=== PATIENT | male | born 2000 | race Caucasian/White ===

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

== ENCOUNTER 2022-02-24 12:01 | Inpatient (IN) | payer MEDICAID, SELFPAY ==
[2022-02-24 12:05] VITALS: BP 150/80; PULSE 97; RESP 18; O2SAT 99; BMI 24.4
--- NOTE | 2022-02-24 12:05 | W.ED.PSYCHS ---
HPI - Psych General: Chief Complaint: Psychiatric Symptoms Stated Complaint: PSYCH EVAL Time Seen by Provider: 02/24/22 12:05 History of Present Illness: Mr. Montana is a 21-year-old male with significant past medical history of autism spectrum disorder, major depression, PTSD presenting to the emergency department due to suicidal ideation. Symptoms worsen started yesterday. Attempted to wrap a string of Dex lights around his neck and also harm himself with a plastic knife. Unsure of why symptoms are worse. Reports compliance with medication regimen and no recent changes. Does report previous benefit from hospitalization. Onset (ago): day(s) Duration: getting worse History of same: Yes Relieving factors: none Exacerbating factors: none Associated psychiatric symptoms: depression and suicidal ideation Treatments prior to arrival: none If self harm: admits thoughts of self harm, has plan and has acted on plan Review of Systems General: Reports: 10 or more systems reviewed and unremarkable except in HPI and below PFSH ED PFSH: Medical History Autism spectrum disorder Physical Exam Const: COMMON NORMALS: alert GENERAL APPEARANCE: cooperative and well developed HENMT: COMMON NORMALS: normocephalic and atraumatic HEAD & SCALP: normocephalic and atraumatic Eye: COMMON NORMALS: conjunctivae normal CONJUNCTIVA: Yes conjunctivae normal SCLERA: sclerae normal Neck/C-Spine: COMMON NORMALS: supple GENERAL: Yes trachea midline Resp: COMMON NORMALS: clear to auscultation bilaterally EFFORT & INSPECTION: Yes able to speak in complete sentences AUSCULTATION: clear to auscultation bilaterally Cardio: COMMON NORMALS: regular rate and regular rhythm RATE: regular rate RHYTHM: regular rhythm GI: COMMON NORMALS: Soft to palpation PALPATION: Yes Soft to palpation and No Tenderness to palpation present (GI) Extremity: GENERAL: Yes normal exam except as noted and No edema Neuro: COMMON NORMALS: moves all extremities SENSORIUM/ORIENTATION: Yes alert and No Orientation impaired Psych: COMMON NORMALS: mental status grossly normal and Normal thought process present THOUGHT PROCESS: Normal thought process present Course Vital Signs: Vital signs: Vital Signs Temperature 98.0 F 02/25/22 13:04 Pulse Rate 71 02/25/22 13:04 Respiratory Rate 18 02/25/22 13:04 Blood Pressure 105/69 02/25/22 13:04 Pulse Oximetry 98 02/25/22 13:04 Oxygen Delivery Me thod 02/24/22 14:21 MDM - Psych Medical Decision Making 21-year-old male presenting with suicidal actions without known provoking cause for worsening psychiatric symptoms. No injuries requiring intervention noted on exam. Laboratory studies without significant hematologic or metabolic abnormalities. Toxic ingestions and urine drug screen negative. Based on clinical history and exam there is no indication for imaging at this time. Based on ED evaluation at this point there is no obvious condition that would preclude the patient from inpatient management of psychiatric concerns. Patient discussed with psychiatry service and patient to be admitted to neuropsych unit for suicidal ideation and self-harm behavior. Medical Records I reviewed the patient's medical records. Lab Data I reviewed the patient's lab results. 02/24/22 12:50 02/24/22 12:40 Laboratory Results WBC 7.7 10^3/uL (4.5-13.0) 02/24/22 12:50 RBC 5.44 10^6/uL (4.1-5.3) H 02/24/22 12:50 Hgb 16.0 g/dL (11.7-16.6) 02/24/22 12:50 Hct 47.9 % (42.0-52.0) 02/24/22 12:50 MCV 88.1 fl (80-94) 02/24/22 12:50 MCH 29.4 pg (28.0-34.0) 02/24/22 12:50 MCHC 33.4 g/dL (30.0-36.0) 02/24/22 12:50 RDW 12.8 % (12.1-15.1) 02/24/22 12:50 Plt Count 226 10^3/cmm (130-400) 02/24/22 12:50 MPV 10.6 fL (7.4-10.4) H 02/24/22 12:50 Neut % (Auto) 68.0 % 02/24/22 12:50 Lymph % (Auto) 19.9 % 02/24/22 12:50 [place] % (Auto) 9.2 % 02/24/22 12:50 Eos % (Auto) 1.4 % 02/24/22 12:50 Baso % (Auto) 0.8 % 02/24/22 12:50 Neut # (Auto) 5.23 10^3/uL (1.8-8.0) 02/24/22 12:50 Lymph # (Auto) 1.5 10^3/uL (1.5-6.5) 02/24/22 12:50 [place] # (Auto) 0.7 10^3/uL (0.2-0.9) 02/24/22 12:50 Eos # (Auto) 0.1 10^3/uL (0.0-0.8) 02/24/22 12:50 Baso # (Auto) 0.1 10^3/uL (0.0-0.1) 02/24/22 12:50 Nucleated RBC % (auto) 0 % 02/24/22 12:50 Nucleated RBCs # 0.0 /100WBC 02/24/22 12:50 Sodium 135 mmol/L (136-145) L 02/24/22 12:40 Potassium 4.0 mmol/L (3.5-5.1) 02/24/22 12:40 Chloride 100 mmol/L (98-107) 02/24/22 12:40 Carbon Dioxide 28 mmol/L (22-29) 02/24/22 12:40 Anion Gap 11.0 (5-19) 02/24/22 12:40 BUN 13 mg/dL (6-20) 02/24/22 12:40 Creatinine 0.9 mg/dL (0.7-1.2) 02/24/22 12:40 GFR Calculation 108.7 mL/min (90-130) 02/24/22 12:40 Glucose 106 mg/dL (65-115) 02/24/22 12:40 Calculated Osmolality 281 mOsm/kg (285-295) L 02/24/22 12:40 Calcium 10.0 mg/dL (8.5-10.5) 02/24/22 12:40 Total Bilirubin 0.3 mg/dL (0.15-1.2) 02/24/22 12:40 AST 26 U/L (0-40) 02/24/22 12:40 ALT 43 U/L (0-41) H 02/24/22 12:40 Alkaline Phosphatase 100 U/L (40-130) 02/24/22 12:40 Total Protein 7.4 g/dL (6.6-8.7) 02/24/22 12:40 Albumin 4.5 g/dL (3.5-5.2) 02/24/22 12:40 Globulin 2.9 g/dL (1.3-4.6) 02/24/22 12:40 TSH 1.11 uIU/mL (0.27-4.20) 02/24/22 12:40 Salicylates < 0.3 mg/dL (3-10) L 02/24/22 12:40 Acetaminophen < 5.0 ug/mL (10-30) L 02/24/22 12:40 Ethyl Alcohol < 10 mg/dL (0-10) 02/24/22 12:40 Discharge Plan Discharge Patient Disposition: Admitted As Inpatient Admit Provider: Radames Redding Clinical Impression: Suicidal ideation, Autism spectrum disorder Condition: Stable Discharge Diet: Advance as tolerated Discharge Activity: Resume usual activity and Increase activity as tolerated Coding Level of Care Code ED Correctional Counselor/Case Manager for Krishg Fwd Exam Comprehensive
[2022-02-24 13:21] LABS: Basophils # 0.1 10^3/uL (0.0-0.1); Basophils % 0.8 %; Eosinophils # 0.1 10^3/uL (0.0-0.8); Eosinophils % 1.4 %; Hematocrit 47.9 % (42.0-52.0); Lymphocytes # 1.5 10^3/uL (1.5-6.5); Lymphocytes % 19.9 %; Mean Corpuscular HGB Conc 33.4 g/dL (30.0-36.0); Mean Corpuscular Hemoglobin 29.4 pg (28.0-34.0); Mean Corpuscular Volume 88.1 fl (80-94); Mean Platelet Volume 10.6 fL (7.4-10.4); Monocytes # 0.7 10^3/uL (0.2-0.9); Monocytes % 9.2 %; Neutrophils # 5.23 10^3/uL (1.8-8.0); Nucleated Red Blood Cells % 0 %; Platelet Count 226 10^3/cmm (130-400); Red Blood Count 5.44 10^6/uL (4.1-5.3); Red Cell Distribution Width 12.8 % (12.1-15.1); White Blood Count 7.7 10^3/uL (4.5-13.0)
[2022-02-24 13:40] LABS: Alanine Aminotransferase 43 U/L (0-41); Albumin Level 4.5 g/dL (3.5-5.2); Alkaline Phosphatase 100 U/L (40-130); Aspartate Amino Transferase 26 U/L (0-40); Blood Urea Nitrogen 13 mg/dL (6-20); Carbon Dioxide 28 mmol/L (22-29); Chloride 100 mmol/L (98-107); Globulin 2.9 g/dL (1.3-4.6); Glomerular Filtration Rate 108.7 mL/min (90-130); Glucose 106 mg/dL (65-115); Osmolality Calculated 281 mOsm/kg (285-295); Sodium 135 mmol/L (136-145); Thyroid Stimulating Hormone 1.11 uIU/mL (0.27-4.20); Total Bilirubin 0.3 mg/dL (0.15-1.2); Total Protein 7.4 g/dL (6.6-8.7)
[2022-02-24 13:43] LABS: Acetaminophen < 5.0 ug/mL (10-30); Alcohol Level < 10 mg/dL (0-10); Salicylate < 0.3 mg/dL (3-10)
[2022-02-24 14:19] VITALS: BP 114/72; PULSE 78; RESP 17; TEMP 36.6; O2SAT 97
--- NOTE | 2022-02-24 15:35 | PC.NURSE ---
Patient states he got really mad and tried to wrap lights around his neck to kill himself. He says he is not sure why he got upset and can't remember why he did, but that he knows he got really angry. He states he can become aggressive and throw things. When asked what triggered these occurrences he says he's not sure but that they just come on all at once by themselves. He denies SI/HI and AH/VH. He does endorse being depressed, but stated, I don't know why, it's just like mixed emotions, I don't know.
[2022-02-24 16:25] LABS: Amphetamines Screen Urine Negative (Negative); Barbiturates Screen Urine Negative (Negative); Benzodiazepines Screen Urine Negative (Negative); Cocaine Screen Urine Negative (Negative); Opiate Screen Urine Negative (Negative); PCP Screen Urine Negative (Negative); THC Screen Urine Negative (Negative)
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
[2022-02-24] MEDS: ARIPiprazole 10 mg Tablet PO (18:54)
[2022-02-24 20:19] VITALS: BP 105/69; PULSE 71; RESP 18; TEMP 36.7; O2SAT 98
[2022-02-24] MEDS: ziprasidone hcl 60 mg Capsule PO (20:52)
[2022-02-24] MEDS: trazodone 100 mg Tablet PO (20:52)
[2022-02-24] MEDS: guanfacine 1 mg Tablet PO (20:52)
[2022-02-25] MEDS: ziprasidone hcl 60 mg Capsule PO (08:38)
[2022-02-25] MEDS: fluoxetine 20 mg Capsule 40 MG PO (08:38)
[2022-02-25] MEDS: naltrexone hcl 50 mg Tablet PO (08:39)
[2022-02-25] MEDS: famotidine 20 mg Tablet PO (08:39)
[2022-02-25] MEDS: ARIPiprazole 10 mg Tablet PO (08:39)
[2022-02-25] MEDS: guanfacine 1 mg Tablet PO (08:40)
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
[2022-02-25 13:04] VITALS: BP 105/69; PULSE 71; RESP 18; TEMP 36.7; O2SAT 98
== END 2022-02-25 13:19 | disposition home or self-care (01) | DRG 886 ==
LOC: ER 13:44 → NP 14:00
PROVIDERS: Admitting Provider Psychiatry & Neurology Psychiatry; Emergency Provider Emergency Medicine; PCP Nurse Practitioner Family; Visit Provider Psychiatry & Neurology Psychiatry
DX: F63.9 Impulse disorder, unspecified (principal); R45.851 Suicidal ideations; F32.9 Major depressive disorder, single episode, unspecified; F84.0 Autistic disorder; F43.10 Post-traumatic stress disorder, unspecified; F90.9 Attention-deficit hyperactivity disorder, unspecified type; Z81.1 Family history of alcohol abuse and dependence
CPT/HCPCS: 36415; 80053; 80306; 80307; 84443; 85025; 97150; 97165; 99285

== ENCOUNTER 2022-03-09 19:34 | Emergency (ER) | payer MEDICAID, SELFPAY ==
[2022-03-09 19:41] VITALS: BMI 27.1
[2022-03-09 19:55] LABS: Basophils # 0.1 10^3/uL (0.0-0.1); Basophils % 0.6 %; Eosinophils # 0.2 10^3/uL (0.0-0.8); Eosinophils % 2.4 %; Hematocrit 44.1 % (42.0-52.0); Hemoglobin 14.8 g/dL (11.7-16.6); Lymphocytes # 2.4 10^3/uL (1.5-6.5); Lymphocytes % 29.7 %; Mean Corpuscular HGB Conc 33.6 g/dL (30.0-36.0); Mean Corpuscular Hemoglobin 29.9 pg (28.0-34.0); Mean Corpuscular Volume 89.1 fl (80-94); Mean Platelet Volume 10.2 fL (7.4-10.4); Monocytes # 0.5 10^3/uL (0.2-0.9); Monocytes % 5.8 %; Neutrophils # 4.99 10^3/uL (1.8-8.0); Neutrophils % 60.9 %; Nucleated Red Blood Cells % 0 %; Platelet Count 226 10^3/cmm (130-400); Red Blood Count 4.95 10^6/uL (4.1-5.3); Red Cell Distribution Width 12.8 % (12.1-15.1); White Blood Count 8.2 10^3/uL (4.5-13.0)
[2022-03-09 20:31] LABS: Add Urine Microscopic? NO; Charge for UA Resulting for Rev
[2022-03-09 20:32] LABS: Alanine Aminotransferase 43 U/L (0-41); Albumin Level 4.4 g/dL (3.5-5.2); Alkaline Phosphatase 105 U/L (40-130); Anion Gap 14.5 (5-19); Aspartate Amino Transferase 29 U/L (0-40); Blood Urea Nitrogen 13 mg/dL (6-20); Calcium 9.4 mg/dL (8.5-10.5); Carbon Dioxide 26 mmol/L (22-29); Chloride 99 mmol/L (98-107); Globulin 3.2 g/dL (1.3-4.6); Glomerular Filtration Rate 96.3 mL/min (90-130); Glucose 161 mg/dL (65-115); Osmolality Calculated 286 mOsm/kg (285-295); Potassium 3.5 mmol/L (3.5-5.1); Sodium 136 mmol/L (136-145); Thyroid Stimulating Hormone 2.83 uIU/mL (0.27-4.20); Total Bilirubin 0.3 mg/dL (0.15-1.2); Total Protein 7.6 g/dL (6.6-8.7)
[2022-03-09 20:33] LABS: Bilirubin Urine Neg (Negative); Blood Urine Neg (Negative); Glucose Urine UA Norm (Normal); Ketones Urine Negative (Negative); Leukocyte Esterase Urine Negative (Negative); Nitrate Urine Negative (Negative); Protein Urine Neg (Negative); Urine Appearance Clear (CLEAR); Urine Color Yellow (Yellow); Urobilinogen Urine 1 mg/dL (Negative); pH Urine 6 (5-7)
[2022-03-09 20:34] LABS: Acetaminophen < 5.0 ug/mL (10-30); Alcohol Level < 10 mg/dL (0-10); Salicylate < 0.3 mg/dL (3-10)
[2022-03-09 20:41] LABS: Amphetamines Screen Urine Negative (Negative); Barbiturates Screen Urine Negative (Negative); Benzodiazepines Screen Urine Positive (Negative); Opiate Screen Urine Negative (Negative)
[2022-03-09 20:50] LABS: SARS Covid-2 Antigen negative (Negative)
[2022-03-09 21:11] LABS: Cocaine Screen Urine Negative (Negative); PCP Screen Urine Negative (Negative); THC Screen Urine Negative (Negative)
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
[2022-03-10 00:28] VITALS: BP 132/81; PULSE 72; RESP 18; O2SAT 98
== END 2022-03-10 00:30 | disposition home or self-care (01) ==
PROVIDERS: Emergency Provider Emergency Medicine; PCP Nurse Practitioner Family
DX: F32.9 Major depressive disorder, single episode, unspecified (principal); F84.0 Autistic disorder; F63.9 Impulse disorder, unspecified; Z20.822 Contact with and (suspected) exposure to COVID-19
CPT/HCPCS: 80053; 80306; 80307; 81003; 84443; 85025; 87426; 99283

== ENCOUNTER 2022-03-17 22:19 | Emergency (ER) | payer MEDICAID, SELFPAY ==
[2022-03-17 22:41] VITALS: BP 114/58; PULSE 52; RESP 18; TEMP 36.6; O2SAT 97; BMI 29.7
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
== END 2022-03-17 23:20 | disposition home or self-care (01) ==
PROVIDERS: Emergency Provider Nurse Practitioner Family; PCP Nurse Practitioner Family
DX: S00.03XA Contusion of scalp, initial encounter (principal); F84.0 Autistic disorder; Y00.XXXA Assault by blunt object, initial encounter
CPT/HCPCS: 99283

== ENCOUNTER 2022-05-01 14:44 | Emergency (ER) | payer MEDICAID, SELFPAY ==
[2022-05-01 14:48] VITALS: BP 142/94; PULSE 93; RESP 16; TEMP 36.4; O2SAT 99
[2022-05-01 15:25] LABS: Basophils % 0.7 %; Eosinophils # 0.1 10^3/uL (0.0-0.8); Hemoglobin 14.9 g/dL (11.7-16.6); Lymphocytes # 1.5 10^3/uL (1.5-6.5); Lymphocytes % 24.8 %; Mean Corpuscular HGB Conc 33.1 g/dL (30.0-36.0); Mean Corpuscular Hemoglobin 29.2 pg (28.0-34.0); Mean Corpuscular Volume 88.2 fl (80-94); Mean Platelet Volume 10.1 fL (7.4-10.4); Monocytes # 0.5 10^3/uL (0.2-0.9); Monocytes % 8.4 %; Neutrophils # 3.86 10^3/uL (1.8-8.0); Neutrophils % 63.8 %; Nucleated Red Blood Cells % 0 %; Platelet Count 218 10^3/cmm (130-400); Red Cell Distribution Width 12.2 % (12.1-15.1); White Blood Count 6.1 10^3/uL (4.5-13.0)
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
[2022-05-01 15:44] LABS: Alanine Aminotransferase 35 U/L (0-41); Albumin Level 4.7 g/dL (3.5-5.2); Alkaline Phosphatase 87 U/L (40-130); Anion Gap 12.1 (5-19); Aspartate Amino Transferase 28 U/L (0-40); Blood Urea Nitrogen 14 mg/dL (6-20); Calcium 9.6 mg/dL (8.5-10.5); Carbon Dioxide 29 mmol/L (22-29); Chloride 101 mmol/L (98-107); Globulin 2.7 g/dL (1.3-4.6); Glomerular Filtration Rate 96.3 mL/min (90-130); Glucose 92 mg/dL (65-115); Osmolality Calculated 286 mOsm/kg (285-295); Potassium 4.1 mmol/L (3.5-5.1); Salicylate 0.5 mg/dL (3-10); Sodium 138 mmol/L (136-145); Total Bilirubin 0.2 mg/dL (0.15-1.2); Total Protein 7.4 g/dL (6.6-8.7)
[2022-05-01 15:45] LABS: Acetaminophen < 5.0 ug/mL (10-30)
[2022-05-01 16:45] VITALS: BP 111/59; PULSE 66; RESP 16; O2SAT 99
[2022-05-01 16:48] VITALS: BP 111/59; PULSE 66; RESP 16; O2SAT 99
== END 2022-05-01 16:53 | disposition home or self-care (01) ==
PROVIDERS: Emergency Provider Family Medicine; PCP Nurse Practitioner Family
DX: F63.9 Impulse disorder, unspecified (principal); F84.0 Autistic disorder
CPT/HCPCS: 80053; 80307; 85025; 99285

== ENCOUNTER 2022-05-05 19:41 | Emergency (ER) | payer MEDICAID, SELFPAY ==
[2022-05-05 19:44] VITALS: BMI 26.4
[2022-05-05 19:52] VITALS: BP 138/84; PULSE 86; RESP 16; TEMP 36.7; O2SAT 97
[2022-05-05 19:54] VITALS: O2SAT 97
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
--- NOTE | 2022-05-05 20:22 | ECG_ITS ---
[facility] Test Date: 2022-05-05 Pat Name: Km [place] Department: Room: Gender: Male Insurance Associate: : 2000 Requested By: Paty Barron Order Number: [id number] Dai MD: Rachell Lerma M.D. Measurements Intervals [place] Rate: 83 P: 48 LA: 162 QRS: 81 QRSD: 101 T: 34 QT: 344 QTc: 405 Interpretive Statements SINUS RHYTHM WITH SINUS ARRHYTHMIA NONSPECIFIC T-WAVE ABNORMALITY No previous ECG available for comparison Electronically Signed On 05-06-2022 20:51:37 COAL DRIER OPERATOR by Rachell Lerma M.D. [id number]
[2022-05-05 20:30] LABS: Add Urine Microscopic? NO; Charge for UA Resulting for Rev
[2022-05-05 20:31] LABS: Basophils # 0.1 10^3/uL (0.0-0.1); Basophils % 0.8 %; Eosinophils # 0.2 10^3/uL (0.0-0.8); Eosinophils % 2.7 %; Hematocrit 44.6 % (42.0-52.0); Hemoglobin 14.6 g/dL (11.7-16.6); Lymphocytes # 2.5 10^3/uL (1.5-6.5); Lymphocytes % 39.5 %; Mean Corpuscular HGB Conc 32.7 g/dL (30.0-36.0); Mean Corpuscular Hemoglobin 29.1 pg (28.0-34.0); Mean Corpuscular Volume 88.8 fl (80-94); Mean Platelet Volume 10.2 fL (7.4-10.4); Monocytes # 0.6 10^3/uL (0.2-0.9); Monocytes % 9.7 %; Neutrophils # 2.93 10^3/uL (1.8-8.0); Neutrophils % 47.1 %; Nucleated Red Blood Cells % 0 %; Platelet Count 238 10^3/cmm (130-400); Red Blood Count 5.02 10^6/uL (4.1-5.3); Red Cell Distribution Width 12.8 % (12.1-15.1); White Blood Count 6.2 10^3/uL (4.5-13.0)
[2022-05-05 20:43] LABS: Bilirubin Urine Neg (Negative); Blood Urine Neg (Negative); Glucose Urine UA Norm (Normal); Ketones Urine Negative (Negative); Leukocyte Esterase Urine Negative (Negative); Nitrate Urine Negative (Negative); Protein Urine Neg (Negative); Urine Appearance Clear (CLEAR); Urine Color Yellow (Yellow); Urobilinogen Urine 4 mg/dL (Negative); pH Urine 7 (5-7)
[2022-05-05 20:50] LABS: Alanine Aminotransferase 35 U/L (0-41); Albumin Level 4.6 g/dL (3.5-5.2); Alkaline Phosphatase 92 U/L (40-130); Anion Gap 13.1 (5-19); Aspartate Amino Transferase 30 U/L (0-40); Blood Urea Nitrogen 14 mg/dL (6-20); Calcium 10.2 mg/dL (8.5-10.5); Carbon Dioxide 29 mmol/L (22-29); Chloride 101 mmol/L (98-107); Globulin 2.6 g/dL (1.3-4.6); Glomerular Filtration Rate 96.3 mL/min (90-130); Glucose 129 mg/dL (65-115); Osmolality Calculated 290 mOsm/kg (285-295); Potassium 4.1 mmol/L (3.5-5.1); Salicylate 0.6 mg/dL (3-10); Sodium 139 mmol/L (136-145); Total Bilirubin 0.3 mg/dL (0.15-1.2); Total Protein 7.2 g/dL (6.6-8.7)
[2022-05-05 20:51] LABS: Acetaminophen < 5.0 ug/mL (10-30); Alcohol Level < 10 mg/dL (0-10); Amphetamines Screen Urine Negative (Negative); Barbiturates Screen Urine Negative (Negative); Benzodiazepines Screen Urine Negative (Negative); Cocaine Screen Urine Negative (Negative); Opiate Screen Urine Negative (Negative); PCP Screen Urine Negative (Negative); THC Screen Urine Negative (Negative)
--- NOTE | 2022-05-05 21:09 | XRR_ITS ---
PROCEDURE INFORMATION: Exam: XR Chest Exam date and time: 05/05/2022 9:55 PM Age: 21 years old Clinical indication: Angina; Additional info: Psych assessment TECHNIQUE: Imaging protocol: Radiologic exam of the chest. Views: 1 view. COMPARISON: No relevant prior studies available. FINDINGS: Lungs: Unremarkable. No consolidation. Pleural spaces: Unremarkable. No pleural effusion. No pneumothorax. Heart/Mediastinum: Unremarkable. No cardiomegaly. Bones/joints: Unremarkable. XR/XR chest 1V portable [id number] IMPRESSION: No acute findings.
[2022-05-05 21:32] LABS: SARS Covid-2 Antigen negative (Negative)
[2022-05-05 21:38] LABS: Thyroid Stimulating Hormone 1.67 uIU/mL (0.27-4.20)
[2022-05-06 06:00] VITALS: BP 122/76; PULSE 83; RESP 18; TEMP 36.5; O2SAT 96
--- NOTE | 2022-05-06 08:32 | PC.NURSE ---
Gave patient breakfast tray.
--- NOTE | 2022-05-06 09:10 | PC.NURSE ---
report given to EMS
== END 2022-05-06 09:48 ==
PROVIDERS: Family Medicine; Emergency Provider Emergency Medicine; PCP Nurse Practitioner Family
DX: F63.9 Impulse disorder, unspecified (principal); F32.A Depression, unspecified; F84.0 Autistic disorder; Z20.822 Contact with and (suspected) exposure to COVID-19
CPT/HCPCS: 71045; 80053; 80306; 80307; 81003; 84443; 85025; 87426; 93005; 99285

== ENCOUNTER 2022-12-19 10:03 | Outpatient (CLI) | payer MEDICAID, SELFPAY ==
--- NOTE | 2022-12-19 10:08 | CT_ITS ---
WS: [id number] CT TEMPORAL BONES TECHNIQUE: Noncontrast CT of the temporal bones with coronal and sagittal reformatted images. CLINICAL INFORMATION: CONDUCTIVE HEARING LOSS,BILATERAL COMPARISON: None. DLP: 374.[address] scans at [facility] use at least one of these dose optimization techniques: automated e xposure control; mA and/or kV adjustment per patient size (includes targeted exams where dose is matc hed to clinical indication); or iterative reconstruction. FINDINGS: RIGHT: Prior postoperative changes RIGHT mastoidectomy. Mild soft tissue thickening in the mastoidectomy bow l. Chronic erosion or resection of the ossicles. Retraction of the tympanic membrane with tympanostom y tube. Soft tissue opacification middle ear. Opacification of the epitympanum mesotympanum and hypot ympanum. Opacification at the oval window. External auditory canal is patent. Chronic thinning of the tegmen tympani. Normal semicircular canals and cochlea. Chronic erosion of the scutum. LEFT: Mastoid air cells are well aerated. Normal external auditory canal. Ossicles are normal in appearance . Middle ear is well aerated. Normal tegmen tympani. Semicircular canals and cochlea are normal in ap pearance. Prussak's space is normal. Normal inner ear structures. Normal vestibular aqueduct. Facial nerve recess is normal. IMPRESSION: 1. Prior postoperative changes RIGHT mastoidectomy with mild soft tissue thickening in the mastoidec matt bowl. 2. Soft tissue opacification RIGHT middle ear with tympanostomy tube and retraction of the tympanic membrane. 3. Chronic erosion of the RIGHT scutum with chronic thinning of the tegmen tympani. 4. Resection or chronic erosion of the RIGHT ossicles. 5. LEFT mastoid air cells and middle ear are well aerated. Normal LEFT inner ear structures. 6. Mild polypoid mucosal thickening in the paranasal sinuses.
== END 2022-12-19 10:04 | disposition home or self-care (01) ==
PROVIDERS: PCP Nurse Practitioner Family; Visit Provider Specialist
DX: H90.2 Conductive hearing loss, unspecified (principal); Z90.09 Acquired absence of other part of head and neck; Z96.22 Myringotomy tube(s) status
CPT/HCPCS: 70480